=== PATIENT | female | born 1955 | race Caucasian/White ===

== ENCOUNTER 2020-10-18 10:30 | Emergency (ER) | payer BC, OTHER ==
[~2020-10-18] VITALS: Ht 175.2 cm; Wt 71.8 kg
[2020-10-18 10:49] LABS: BASOPHILS % (AUTO) 0 % (0-10); EOSINOPHILS # (AUTO) 0.1 10^3/uL (0.0-0.3); EOSINOPHILS % (AUTO) 3 % (0-10); HEMATOCRIT 40 % (35-52); HEMOGLOBIN 13.2 g/dL (11.5-16.0); LYMPHOCYTES # (AUTO) 1.1 10^3/uL (1.0-4.0); LYMPHOCYTES % (AUTO) 32 % (12-44); MEAN CORPUSCULAR HEMOGLOBIN 31 pg (25-34); MEAN CORPUSCULAR HGB CONC 33 g/dL (32-36); MEAN CORPUSCULAR VOLUME 93 fL (80-99); MEAN PLATELET VOLUME 9.3 fL (9.0-12.2); MONOCYTES # (AUTO) 0.3 10^3/uL (0.0-1.0); MONOCYTES % (AUTO) 9 % (0-12); NEUTROPHILS # (AUTO) 1.9 10^3/uL (1.8-7.8); NEUTROPHILS % (AUTO) 57 % (42-75); PLATELET COUNT 218 10^3/uL (130-400); WHITE BLOOD COUNT 3.3 10^3/uL (4.3-11.0)
[2020-10-18 11:05] LABS: ALBUMIN 4.3 GM/DL (3.2-4.5)
[2020-10-18 11:05] LABS: PROTHROMBIN TIME PATIENT 13.1 SEC (12.2-14.7)
[2020-10-18 11:06] LABS: POTASSIUM 3.8 MMOL/L (3.6-5.0)
[2020-10-18 11:07] LABS: CALCIUM 9.7 MG/DL (8.5-10.1)
--- NOTE | 2020-10-18 11:07 | Diagnostic Imaging Report ---
INDICATION: Chest pain, abnormal EKG. Frontal chest obtained at 11:04 a.m. There is no prior study for comparison. FINDINGS: Heart is normal in size. Mediastinal silhouette is unremarkable. There is some mild increased basilar markings which may be chronic, there are no prior studies for comparison. There is no consolidation or pneumothorax or pleural fluid. There is no sign of interstitial edema. IMPRESSION: No acute consolidation or pleural fluid. There are some increased basilar markings which may represent scarring or atelectasis. Dictated by: Dictated on workstation # [id number]
[2020-10-18 11:08] LABS: TOTAL PROTEIN 7.3 GM/DL (6.4-8.2)
[2020-10-18 11:10] LABS: BILIRUBIN,TOTAL 0.6 MG/DL (0.1-1.0)
[2020-10-18 11:12] LABS: CREATININE SERUM 1.21 MG/DL (0.60-1.30)
[2020-10-18 11:15] LABS: MAGNESIUM 2.3 MG/DL (1.6-2.4)
[2020-10-18] MEDS ORDERED: KETOROLAC 30 MG/ML VIAL IVP STA (11:29)
[2020-10-18] MEDS ORDERED: NS IV 500 ML 500 ML IV ONE (11:30)
--- NOTE | 2020-10-18 13:26 | ED Chest Pain ---
General Chief Complaint: Chest Pain Stated Complaint: ABNORMAL EKG Nursing Triage Note: AMB TO ROOM FROM [facility] WITH POSSIBLE ABNORMAL EKG PER [facility]. PATIENT REPORTS HAS HAD CHEST PAIN SINCE HAVING COVID DEC 7 REPORTS PAIN IS INTERMITTEN Nursing Sepsis Screen: No Definite Risk Source: patient Exam Limitations: no limitations History of Present Illness Date Seen by Provider: Oct 18, 2020 Time Seen by Provider: 10:41 Initial Comments Here by POV from [facility] where she had follow-up evaluation after recovering from COVID-19 infection. She had chest pain that was sharp and achy overnight that was in the center of her chest and radiated to her back. She had that intermittently this morning. Seen [facility] and had negative EKG. Patient did take 1 full dose baby aspirin early this morning with the episode. Denies residual shortness of breath, weakness, sweating, nausea or vomiting. She has had intermittent pain over the last month. She is on Symbicort and albuterol as needed. She has not been using albuterol. Denies history of reflux but does state the chest pain can sometimes be burning as well. Timing/Duration: intermittent, 1-2 days Severity/Quality: moderate, aching, burning, sharp Location: central Radiation: back ASA po BUILD AUTOMATION ENGINEER: Yes NTG SL BUILD AUTOMATION ENGINEER: No Associated Symptoms: back pain; No diaphoresis, No dizziness, No fever/chills, No nausea/vomiting, No shortness of breath, No weakness Allergies and Home Medications Allergies Coded Allergies: sulfamethoxazole (Verified Allergy, Unknown, 10/18/20) trimethoprim (Verified Allergy, Unknown, 10/18/20) Patient Home Medication List Home Medication List Reviewed: Yes Review of Systems Review of Systems Constitutional: see HPI; No chills, No fever EENTM: No Symptoms Reported Respiratory: No Symptoms Reported Cardiovascular: Chest Pain; Denies Edema Gastrointestinal: Denies Nausea, Denies Vomiting Genitourinary: No Symptoms Reported Musculoskeletal: no symptoms reported Skin: no symptoms reported Psychiatric/Neurological: No Symptoms Reported; Denies Headache All Other Systems Reviewed Negative Unless Noted: Yes Past Qkjyfos-Vwmkhv-Ftoahu Hx Past Med/Social Hx: Reviewed Nursing Past Med/Soc Hx Patient Social History Alcohol Use: Denies Use Recreational Drug Use: No Smoking Status: Never a Smoker Recent Foreign Travel: No Contact w/Someone Who Travel: No Recent Infectious Disease Expo: No Past Medical History Surgeries: Yes Breast Cardiac: Yes Hypertension Musculoskeletal: No Endocrine: No HEENT: No Cancer: No Psychosocial: No Integumentary: No Family Medical History Reviewed Nursing Family Hx Physical Exam Vital Signs Vital Signs - First Documented 10/18/20 10:50 Temp 36.0 Pulse 58 Resp 18 B/P (MAP) 167/96 (119) Capillary Refill : Less Than 3 Seconds Height, Weight, BMI Height: '" Weight: lbs. oz. kg; 23.00 BMI Method: General Appearance: No Apparent Distress, WD/WN HEENT: PERRL/EOMI, Pharynx Normal Neck: Non Tender, Supple Respiratory: Lungs Clear, Normal Breath Sounds Cardiovascular: Regular Rate, Rhythm, No Murmur Gastrointestinal: Non Tender, Soft Extremity: Normal Range of Motion, Non Tender Neurologic/Psychiatric: Alert, Oriented x3 Skin: Normal Color, Warm/Dry Progress/Results/Core Measures Results/Orders Lab Results Laboratory Tests Test 10/18/20 10:41 10/18/20 10:42 10/18/20 13:00 Range/Units Prothrombin Time 13.1 12.2-14.7 SEC INR Comment 1.0 0.8-1.4 Activated Partial Thromboplast Time 29 24-35 SEC White Blood Count 3.3 L 4.3-11.0 10^3/uL Red Blood Count 4.25 3.80-5.11 10^6/uL Hemoglobin 13.2 11.5-16.0 g/dL Hematocrit 40 35-52 % Mean Corpuscular Volume 93 80-99 fL Mean Corpuscular Hemoglobin 31 25-34 pg Mean Corpuscular Hemoglobin Concent 33 32-36 g/dL Red Cell Distribution Width 12.4 10.0-14.5 % Platelet Count 218 130-400 10^3/uL Mean Platelet Volume 9.3 9.0-12.2 fL Immature Granulocyte % (Auto) 0 % Neutrophils (%) (Auto) 57 42-75 % Lymphocytes (%) (Auto) 32 12-44 % Monocytes (%) (Auto) 9 0-12 % Eosinophils (%) (Auto) 3 0-10 % Basophils (%) (Auto) 0 0-10 % Neutrophils # (Auto) 1.9 1.8-7.8 10^3/uL Lymphocytes # (Auto) 1.1 1.0-4.0 10^3/uL Monocytes # (Auto) 0.3 0.0-1.0 10^3/uL Eosinophils # (Auto) 0.1 0.0-0.3 10^3/uL Basophils # (Auto) 0.0 0.0-0.1 10^3/uL Immature Granulocyte # (Auto) 0.0 0.0-0.1 10^3/uL D-Dimer 0.48 0.00-0.49 UG/ML Sodium Level 142 135-145 MMOL/L Potassium Level 3.8 3.6-5.0 MMOL/L Chloride Level 104 98-107 MMOL/L Carbon Dioxide Level 30 21-32 MMOL/L Anion Gap 8 5-14 MMOL/L Blood Urea Nitrogen 21 H 7-18 MG/DL Creatinine 1.21 0.60-1.30 MG/DL Estimat Glomerular Filtration Rate 45 BUN/Creatinine Ratio 17 Glucose Level 95 70-105 MG/DL Calcium Level 9.7 8.5-10.1 MG/DL Corrected Calcium 9.5 8.5-10.1 MG/DL Magnesium Level 2.3 1.6-2.4 MG/DL Total Bilirubin 0.6 0.1-1.0 MG/DL Aspartate Amino Transf (AST/SGOT) 19 5-34 U/L Alanine Aminotransferase (ALT/SGPT) 18 0-55 U/L Alkaline Phosphatase 69 40-136 U/L Myoglobin 41.0 10.0-92.0 NG/ML Troponin I < 0.028 < 0.028 <0.028 NG/ML B-Type Natriuretic Peptide 64.8 <100.0 PG/ML Total Protein 7.3 6.4-8.2 GM/DL Albumin 4.3 3.2-4.5 GM/DL My Orders Orders - KALEY WEAVER MD Cbc With Automated Diff (10/18/20 10:41) Magnesium (10/18/20 10:41) Chest 1 View, Ap/Pa Only (10/18/20 10:41) Ekg Tracing (10/18/20 10:41) Comprehensive Metabolic Panel (10/18/20 10:41) Myoglobin Serum (10/18/20 10:41) Protime With Inr (10/18/20 10:41) Partial Thromboplastin Time (10/18/20 10:41) O2 (10/18/20 10:41) Monitor-Rhythm Ecg Trace Only (10/18/20 10:41) Lipid Panel (10/19/20 06:00) Ed Iv/Invasive Line Start (10/18/20 10:41) BNP (10/18/20 10:41) Fibrin Degradation Products (10/18/20 10:41) Troponin I (10/18/20 10:41) Ns Iv 500 Ml (Sodium Chloride 0.9%) (10/18/20 11:30) Ketorolac Injection (Toradol Injection) (10/18/20 11:29) Troponin I (10/18/20 12:55) Medications Given in ED Current Medications Medications Dose Ordered Sig/Khalida Route Start Time Stop Time Status Last Admin Dose Admin Sodium Chloride 500 ml @ 0 mls/hr Q0M ONCE IV 10/18/20 11:30 10/18/20 11:31 DC 10/18/20 12:00 500 MLS/HR Vital Signs/I&O 10/18/20 10:50 Temp 36.0 Pulse 58 Resp 18 B/P (MAP) 167/96 (119) Blood Pressure Mean: 119 Progress Progress Note : Progress Note Seen and evaluated. IV, labs, EKG and chest x-ray ordered. Patient has already had aspirin today. Chest pain is coming and going on really mostly gone currently but she does have a little ache. Toradol 30 mg IV ordered. Monitor patient. 1235: We will order repeat troponin as first set is negative and overall things look good. Pain-free currently. She did receive normal saline 500 mL bolus. Monitor patient. 1351: Pain has remained resolved. Repeat troponin is negative. I did instruct the patient for follow-up with her doctor as well as cardiology. She will initiate blri-zau-ctgckly famotidine and continue her albuterol inhaler. Discharged home with return precautions. Patient verbalized understanding of instructions and agreement with plan. Initial ECG Impression Date: Oct 18, 2020 Initial ECG Impression Time: 10:36 Initial ECG Rate: 51 Initial ECG Rhythm: Normal Sinus Initial ECG Comparisson: No Previous ECG Available Comment Sinus rhythm with normal axis. No evidence of ST elevation IN. No previous available for comparison. Interpreted by me. Diagnostic Imaging Diagonstic Imaging: Xray Plain Films/CT/US/NM/MRI: chest Comments [facility] [place], [place] NAME: EDUIN BARRIOS [facility] REC#: [id number] PT STATUS: REG ER : 1955 PHYSICIAN: KALEY WEAVER MD ADMIT DATE: 10/18/20/ER Draft Date of Exam:10/18/20 CHEST 1 VIEW, AP/PA ONLY INDICATION: Chest pain, abnormal EKG. Frontal chest obtained at 11:04 a.m. There is no prior study for comparison. FINDINGS: Heart is normal in size. Mediastinal silhouette is unremarkable. There is some mild increased basilar markings which may be chronic, there are no prior studies for comparison. There is no consolidation or pneumothorax or pleural fluid. There is no sign of interstitial edema. IMPRESSION: No acute consolidation or pleural fluid. There are some increased basilar markings which may represent scarring or atelectasis. Dictated on workstation # [id number] Dict: 10/18/20 1104 Trans: 10/18/20 1106 [id number] Interpreted by: LILIANA BRUNNER MD Electronically signed by: Departure Impression Primary Impression: Chest pain Qualified Codes: R07.9 - Chest pain, unspecified Disposition: HOME, SELF-CARE Condition: Improved Departure-Patient Inst. Decision time for Depature: 13:54 Referrals: СЕРГЕЙ SHARPE MD FACP FAC CCDS ROSHNI JONES MD NO,LOCAL PHYSICIAN (PCP) Primary Care Physician Patient Instructions: Chest Pain (DC) Add. Discharge Instructions: All discharge instructions reviewed with patient and/or family. Voiced understanding. Use your albuterol rescue inhaler 2 puffs every 6 hours as needed and you should probably do this for the next few days to help open up your lungs. You may initiate famotidine (Pepcid) 20 mg once or twice daily for the next week and then as needed to reduce stomach acid. Follow-up with your doctor for referral to cardiology or make appointment with design technician listed above or of your choosing for recheck and further evaluation regarding your chest pain. Return for worse pain, fever, vomiting, weakness, breathing problems, sweating or other concerns as needed. Copy Copies To 1: EDUIN ANTOINE TIMOTHY D MD Oct 18, 2020 13:26
[2020-10-18 14:19] VITALS: BP 146/89
== END 2020-10-18 14:19 | disposition home or self-care (01) ==
LOC: EDUNIT# 10:30 → ER 10:34
DX: R07.89 Other chest pain (principal); I10 Essential (primary) hypertension; Z86.19 Personal history of other infectious and parasitic diseases; Z79.51 Long term (current) use of inhaled steroids; Z88.1 Allergy status to other antibiotic agents; Z88.2 Allergy status to sulfonamides
CPT/HCPCS: 36415; 71045; 80053; 83735; 83874; 83880; 84484; 85025; 85379; 85610; 85730; 93005; 93041